=== PATIENT | female | born 1940 | race African-American/Black ===

== ENCOUNTER 2021-03-01 15:00 | Emergency (ER) | payer OTHER ==
[~2021-03-01] VITALS: Ht 154.9 cm; Wt 59.0 kg
[2021-03-01 15:11] VITALS: BP 162/62
[2021-03-01] MEDS ORDERED: ACETAMINOPHEN 325MG TABLET PO ONE (16:30)
[2021-03-01] MEDS ORDERED: TOPUD MT (17:33)
== END 2021-03-01 18:38 | disposition home or self-care (01) ==
LOC: ER 15:00
DX: M25.561 Pain in right knee (principal); E78.00 Pure hypercholesterolemia, unspecified; I10 Essential (primary) hypertension
CPT/HCPCS: 73562; 99283

== ENCOUNTER 2022-03-22 15:05 | Emergency (ER) | payer SELFPAY ==
[~2022-03-22] VITALS: Ht 152.4 cm; Wt 59.0 kg
[~2022-03-22 15:05] MED LIST: TOPUD MT
[2022-03-22 15:30] VITALS: BP 123/72
== END 2022-03-22 18:58 | disposition left against medical advice (07) ==
LOC: ER 15:05
DX: Z53.21 Procedure and treatment not carried out due to patient leaving prior to being seen by health care provider (principal)

== ENCOUNTER 2022-03-23 12:48 | Emergency (ER) | payer OTHER ==
[~2022-03-23] VITALS: Ht 165.1 cm; Wt 67.0 kg
[2022-03-23 13:57] VITALS: BP 142/73
== END 2022-03-23 13:58 | disposition home or self-care (01) ==
LOC: ER 12:48
DX: S49.92XA Unspecified injury of left shoulder and upper arm, initial encounter (principal); E78.00 Pure hypercholesterolemia, unspecified; I10 Essential (primary) hypertension; Z13.9 Encounter for screening, unspecified; W18.30XA Fall on same level, unspecified, initial encounter; Y93.89 Activity, other specified; Y92.89 Other specified places as the place of occurrence of the external cause; Y99.8 Other external cause status
CPT/HCPCS: 99281